=== PATIENT | female | born 2000 | race African-American/Black ===

== ENCOUNTER 2021-02-09 08:52 | Emergency (ER) | payer MEDICAID, SELFPAY ==
[2021-02-09 08:55] VITALS: BP 104/58; PULSE 70; RESP 17; TEMP 36.3; O2SAT 99; BMI 21.9
--- NOTE | 2021-02-09 09:36 | RAD_ITS ---
STUDY: X-RAY - CERVICAL SPINE REASON FOR EXAM: Female, 20 years old. Injury/Pain TECHNIQUE: 3 view(s) of the cervical spine were obtained. COMPARISON: None FINDINGS: Normal anterior atlantoaxial articulation. Normal odontoid process. Normal cervical lordosis. Normal vertebral bodies and endplates. Normal disc space heights. Normal visualized intervertebral neuroforamina. The soft tissue structures are unremarkable. RAD/Cerv Spine 2 or 3 Views IMPRESSION: Normal x-ray examination of the visualized cervical spine. Electronically Signed: Andreas Martini MD at 10:28 EDT Tel , Service support ,
--- NOTE | 2021-02-09 09:36 | RAD_ITS ---
STUDY: X-RAY - THORACIC SPINE REASON FOR EXAM: Female, 20 years old. Injury/Pain TECHNIQUE: 3 view(s) of the thoracic spine were obtained. COMPARISON: None. FINDINGS: Normal kyphosis of the thoracic spine. There is no substantial scoliosis. Normal thoracic vertebrae and endplates. Normal disc space heights. The soft tissue structures are unremarkable. RAD/Thoracic Spine 3 Views IMPRESSION: Normal x-ray examination of the thoracic spine. Electronically Signed: Andreas Martini MD at 10:29 EDT Tel , Service support ,
[2021-02-09] MEDS: Ibuprofen 600 MG Tablet PO (10:02)
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
--- NOTE | 2021-02-09 10:17 | ED.RN ---
Pt states she needs to leave for work; MD notified and pt informed that we would have her d/c instructions once radiology reports back in an envelope at the triage desk. Pt and mother ok with this.
== END 2021-02-09 10:30 | disposition home or self-care (01) ==
PROVIDERS: Emergency Provider Emergency Medicine
DX: S16.1XXA Strain of muscle, fascia and tendon at neck level, initial encounter (principal); S29.012A Strain of muscle and tendon of back wall of thorax, initial encounter; S20.221A Contusion of right back wall of thorax, initial encounter; Y04.2XXA Assault by strike against or bumped into by another person, initial encounter; Y93.89 Activity, other specified; Y92.89 Other specified places as the place of occurrence of the external cause; Y99.8 Other external cause status
CPT/HCPCS: 72040; 72072; 99282

== ENCOUNTER 2021-09-01 14:00 | Outpatient (RCR) | payer MEDICAID, SELFPAY ==
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
--- NOTE | 2021-10-13 11:49 | HP.PT.NRP ---
MANPREET ELAM was seen in my office for initial evaluation on 08/21/21. The following Plan of Care was established for this patient: Initial Frequency: 2x /Week Initial Duration: 4 Weeks Patient/Client Instruction: Educate patient on: Benefits of Fitness Program Therapeutic Exercise to Include: Strength training, Endurance training, Balance training, Coordination, Agility training, Body mechanics, Postural training, Neuromotor development, Dynamic Lumbar Stabilization, Scapular Strength/Stabilization For the Purpose of:: To improve muscle performance and motor function TENS: Yes Cryotherapy (ice pack, ice massage): Yes Thermo therapy (hot pack): Yes This patient was last seen in our office . Pertinent comments regarding their Physical therapy will appear below: Patient has not attended physical therapy in over 30 days- appropriate for d/c and return to MD for further evaluation as needed. At this point I will be discontinuing this patient from physical therapy. I would be happy to see this patient again in the future if found appropriate by the physician. Thank you! Precious Graves, [place] Balance/Gait/Functional tests - Balance/Special Test Scores Quick DASH Score: [phone]
== END 2021-09-01 19:00 | disposition home or self-care (01) ==
LOC: PT 14:00
PROVIDERS: Referring Provider Orthopaedic Surgery; Visit Provider Orthopaedic Surgery
DX: G25.89 Other specified extrapyramidal and movement disorders (principal); M54.12 Radiculopathy, cervical region
CPT/HCPCS: 97110; 97162